=== PATIENT | female | born 1985 | race Caucasian/White ===

== ENCOUNTER 2020-03-20 10:37 | Emergency (ER) | payer BC ==
[~2020-03-20] VITALS: Ht 182.9 cm; Wt 100.0 kg
[2020-03-20] MEDS ORDERED: HYDROXYZINE HCL25 M1 PO (10:48)
[2020-03-20] MEDS ORDERED: LEXAPRO5 MG (10:48)
[2020-03-20 12:39] LABS: EOS # 0.1 (0.04-0.40); EOS % 1.7 % (1.0-5.0); HEMATOCRIT 42.7 % (37.0-47.0); HEMOGLOBIN 13.9 g/dL (12.5-16.0); LYMPH# 1.5 (1.50-4.00); MEAN CELL VOLUME 90 fl (78-100); MEAN CORPUSCULAR HEMOGLOBIN 29 pg (27-31); MEAN CORPUSCULAR HGB CONC 33 g/dL (33-37); MONO # 0.4 (0.20-0.80); NEU # 4.9 (1.40-6.50); PLATELET COUNT 190 K/mm3 (130-400); RED BLOOD COUNT 4.77 M/mm3 (4.10-5.30)
[2020-03-20 12:44] LABS: ALBUMIN 4.3 g/dL (3.5-5.0); POTASSIUM 3.8 mmol/L (3.5-5.1); SODIUM 143 mmol/L (136-145)
[2020-03-20 12:45] LABS: CALCIUM 9.7 mg/dL (8.3-10.5)
[2020-03-20 12:46] LABS: GLUCOSE 101 mg/dL (65-105)
[2020-03-20 12:47] LABS: TOTAL PROTEIN 7.8 g/dL (6.4-8.3)
[2020-03-20 12:48] LABS: CARBON DIOXIDE 24 mmol/L (22-29); TOTAL BILIRUBIN 0.3 mg/dL (0.2-1.2)
[2020-03-20 12:51] LABS: URINE APPEARANCE CLEAR; URINE COLOR YELLOW; URINE GLUCOSE NEGATIVE (NEGATIVE); URINE PROTEIN(semi-quant) TRACE mg/dL (NEGATIVE)
[2020-03-20 12:52] LABS: AST-SGOT 20 U/L (5-34); URINE BILIRUBIN NEGATIVE (NEGATIVE); URINE BLOOD NEGATIVE (NEGATIVE); URINE KETONE NEGATIVE (NEGATIVE); URINE LEUKOCYTE ESTERASE NEGATIVE (NEGATIVE); URINE NITRATE NEGATIVE (NEGATIVE); URINE UROBILINOGEN NORMAL (NORMAL); URINE WBC 0-1 /hpf (0-3)
[2020-03-20 12:53] LABS: ALT/SGPT 20 U/L (0-55)
[2020-03-20 13:10] LABS: TROPONIN-I < 0.03 ng/mL (<0.030)
[2020-03-20] MEDS ORDERED: ATIVAN0.5 MG PO (14:51)
[2020-03-20 15:05] VITALS: BP 145/95
== END 2020-03-20 14:59 | disposition home or self-care (01) ==
LOC: ED 10:37
PROVIDERS: Nurse Practitioner Family
DX: F41.9 Anxiety disorder, unspecified (principal); F43.9 Reaction to severe stress, unspecified; R06.02 Shortness of breath